=== PATIENT | male | born 1945 ===

== ENCOUNTER 2018-09-15 15:21 | Inpatient (IN) | payer OTHER ==
[~2018-09-15] VITALS: Ht 180.3 cm; Wt 103.4 kg
[2018-09-15] MEDS ORDERED: TOPROL XL100 MG PO (18:33)
[2018-09-15] MEDS ORDERED: COZAAR100 MG PO (18:35)
[2018-09-16] MEDS ORDERED: COZAAR100 MG PO (07:15)
[2018-09-16] MEDS ORDERED: OMEPRAZOLE20 MG PO (07:15)
[2018-09-16] MEDS ORDERED: ATORVASTATIN CA20 MG PO (07:16)
[2018-09-16] MEDS ORDERED: SINGULAIR10 MG PO (07:16)
[2018-09-16] MEDS ORDERED: RANITIDINE HCL150 M1 PO (07:16)
[2018-09-23] MEDS ORDERED: PERCOCET 5-3251 EACH PO (13:20)
[2018-09-23] MEDS ORDERED: POLY119PG PO (13:20)
[2018-09-23] MEDS ORDERED: CARAFATE1 GM/10 ML PO (13:20)
[2018-09-23] MEDS ORDERED: SIMETHICONE80 MG PO (13:21)
== END 2018-09-23 13:52 | disposition home or self-care (01) | DRG 326 ==
LOC: O/R 09-22 05:55 → SURG 09-22 05:55 → O/R 09-22 10:30 → SURG 09-22 13:29 → O/R 09-22 15:20 → SURG 09-23 13:52
PROVIDERS: ADMIT Surgery
PROC: 0DS64ZZ Reposition Stomach, Percutaneous Endoscopic Approach (ICD-10-PCS; 2018-09-22)
PROC: 0WUF4JZ Supplement Abdominal Wall with Synthetic Substitute, Percutaneous Endoscopic Approach (ICD-10-PCS; 2018-09-22)
PROC: 0BUT4JZ Supplement Diaphragm with Synthetic Substitute, Percutaneous Endoscopic Approach (ICD-10-PCS; principal; 2018-09-22 10:30)
DX: K44.0 Diaphragmatic hernia with obstruction, without gangrene (principal); K56.2 Volvulus; K42.0 Umbilical hernia with obstruction, without gangrene; K21.0 Gastro-esophageal reflux disease with esophagitis; I10 Essential (primary) hypertension; I48.0 Paroxysmal atrial fibrillation

== ENCOUNTER 2021-01-17 11:49 | Inpatient (IN) | payer OTHER ==
[~2021-01-17] VITALS: Ht 177.8 cm; Wt 100.7 kg
[~2021-01-17 11:49] MED LIST: ATORVASTATIN CA20 MG PO; CARAFATE1 GM/10 ML PO; COZAAR100 MG PO; OMEPRAZOLE20 MG PO; PERCOCET 5-3251 EACH PO; POLY119PG PO; RANITIDINE HCL150 M1 PO; SIMETHICONE80 MG PO; SINGULAIR10 MG PO; TOPROL XL100 MG PO
[2021-01-17] MEDS ORDERED: AVAPRO150 MG PO (12:01)
[2021-01-17] MEDS ORDERED: ELIQUIS5 MG PO (12:01)
--- NOTE | 2021-01-17 12:48 | NUR ---
SE LE ORIENTA A LA PACIENTE SOBRE LAS ORDENES MEDICAS, REFIERE ENTENDER LAS MISMAS. SE CANALIZA Y SE LE COLOCA LOS IVF'S Y SE LE NAVARRO LAS MUETRAS DE MONTSERRAT Y SE LE REALIZA PLACA Y CT DE ABDOMINAL LESVIA LAS ORDENES MEDICAS.
[2021-01-24] MEDS ORDERED: FLAGYL500MG PO (14:19)
[2021-01-24] MEDS ORDERED: ZYVOX100 MG/5 M PO (14:19)
== END 2021-01-24 17:20 | disposition home or self-care (01) | DRG 392 ==
LOC: EDBD 11:49 → ER 11:49 → SURG 18:07
PROVIDERS: ADMIT Surgery; ATTEND Surgery
PROC: 0W9G30Z Drainage of Peritoneal Cavity with Drainage Device, Percutaneous Approach (ICD-10-PCS; principal; 2021-01-18)
DX: K57.20 Diverticulitis of large intestine with perforation and abscess without bleeding (principal); I48.20 Chronic atrial fibrillation, unspecified; I10 Essential (primary) hypertension; Z20.822 Contact with and (suspected) exposure to COVID-19; Z79.01 Long term (current) use of anticoagulants; N28.1 Cyst of kidney, acquired

== ENCOUNTER 2021-02-08 12:33 | Inpatient (IN) | payer OTHER ==
[~2021-02-08] VITALS: Ht 177.8 cm; Wt 96.2 kg
[~2021-02-08 12:33] MED LIST changes: +AVAPRO150 MG PO; +ELIQUIS5 MG PO; +FLAGYL500MG PO; +ZYVOX100 MG/5 M PO
== END 2021-02-11 09:55 | disposition expired | DRG 391 ==
LOC: ER 12:33 → SURG 16:17
PROVIDERS: ADMIT Colon & Rectal Surgery; ATTEND Colon & Rectal Surgery
PROC: 02HV33Z Insertion of Infusion Device into Superior Vena Cava, Percutaneous Approach (ICD-10-PCS; principal; 2021-02-09)
PROC: 0BH17EZ Insertion of Endotracheal Airway into Trachea, Via Natural or Artificial Opening (ICD-10-PCS; 2021-02-11)
PROC: 5A1945Z Respiratory Ventilation, 24-96 Consecutive Hours (ICD-10-PCS; 2021-02-11)
PROC: 4A12X4Z Monitoring of Cardiac Electrical Activity, External Approach (ICD-10-PCS; 2021-02-11)
PROC: 4A033R1 Measurement of Arterial Saturation, Peripheral, Percutaneous Approach (ICD-10-PCS; 2021-02-11)
DX: K57.20 Diverticulitis of large intestine with perforation and abscess without bleeding (principal); J96.00 Acute respiratory failure, unspecified whether with hypoxia or hypercapnia; N17.8 Other acute kidney failure; I13.10 Hypertensive heart and chronic kidney disease without heart failure, with stage 1 through stage 4 chronic kidney disease, or unspecified chronic kidney disease; N18.9 Chronic kidney disease, unspecified; Z79.01 Long term (current) use of anticoagulants; Z20.822 Contact with and (suspected) exposure to COVID-19